=== PATIENT | male | born 1960 | race Caucasian/White ===

== ENCOUNTER 2021-03-03 13:57 | Day surgery (SDC) | payer OTHER ==
[2021-03-03] MEDS ORDERED: LIDOCAINE HCL 2% 100 MG/5 ML IJ ONE (13:58)
[2021-03-03] MEDS ORDERED: DIPRIVAN 200 MG/20 ML IV ONE (15:30)
[2021-03-03] MEDS ORDERED: Lactated Ringers 1,000 ML IV ONE (15:43)
--- NOTE | 2021-03-03 16:55 | XRAY ---
Indication: Bilateral L4-S1 MBB. Intraoperative fluoroscopy provided for 16 seconds. Single digital spot image submitted for interpretation demonstrates posterior needle tips projecting over the expected left and right L4-S1 nerve roots. Correlate with intraoperative findings/report.
--- NOTE | 2021-03-03 17:12 | XRAY ---
16 seconds fluoroscopy time in surgery for bilateral L4-S1 MBB.
== END 2021-03-03 15:55 | disposition home or self-care (01) ==
LOC: SDC-PAIN 13:57
PROVIDERS: ATTEND Psychiatry & Neurology Pain Medicine
DX: M47.816 Spondylosis without myelopathy or radiculopathy, lumbar region (principal); R55 Syncope and collapse; F41.9 Anxiety disorder, unspecified; F32.9 Major depressive disorder, single episode, unspecified; F43.10 Post-traumatic stress disorder, unspecified; F20.9 Schizophrenia, unspecified; Z79.899 Other long term (current) drug therapy
CPT/HCPCS: 64493; 64494; 72020; 77002; J2704

== ENCOUNTER 2021-06-09 11:39 | Day surgery (SDC) | payer OTHER ==
[2021-06-09] MEDS ORDERED: BUPIVACAINE 0.5% VIAL IJ ONE (11:40)
[2021-06-09] MEDS ORDERED: DIPRIVAN 200 MG/20 ML IV ONE (12:45)
[2021-06-09] MEDS ORDERED: Lactated Ringers 1,000 ML IV ONE (13:38)
--- NOTE | 2021-06-09 14:26 | XRAY ---
16 seconds of fluoroscopy was used in surgery for a bilateral L4-S1 MBB.
== END 2021-06-09 13:23 | disposition home or self-care (01) ==
LOC: SDC-PAIN 11:39
PROVIDERS: ATTEND Psychiatry & Neurology Pain Medicine
DX: M47.816 Spondylosis without myelopathy or radiculopathy, lumbar region (principal); Z79.899 Other long term (current) drug therapy
CPT/HCPCS: 64493; 64494; 72020; 77002; J2704

== ENCOUNTER 2021-11-24 23:12 | Emergency (ER) | payer OTHER ==
--- NOTE | 2021-11-25 00:23 | ERPHSYRPT ---
- History of Present Illness Time Seen by Provider: 11/24/21 23:45 Source: patient Exam Limitations: no limitations Patient Subjective Stated Complaint: C/O mid lower back pain. Patient states that he slipped and fell on the ice on 11/15/21 and then his back began hurting on 11/17/21. Patient indicates that he can't get an appointment with his regular MD until 12/02/21 and he can't stand the pain any longer. Triage Nursing Assessment: Patient ambulated back to ED with a slow gait. Patient is alert and oriented and answering questions appropriately. Patient does display s/s of pain with movement in bed. No swelling or bruising noted to lower back upon inspection; skin intact. Physician History: This 61-year-old white male who fell on the ice on 11/15/2021. The patient has chronic back pain issues and has had injections in the back several times in the past. He sees pain specialist Dr. Waller. He does not have an appointment again until 12/02/2021. He states he can't take the pain anymore. Patient has a history of seizures and peripheral neuropathy of his hand. Patient has not had his back x-rayed since the fall on 11/15/2021. He has no urinary or bowel incontinence. He is able to ambulate but it hurts to do so. Timing/Duration: week(s) (2), intermittent, worse Method of Injury: fall (On ice) Quality: sharp, stabbing Back Pain Location: lumbar spine Severity of Pain-Max: moderate Severity of Pain-Current: moderate Modifying Factors: Improves With: movement Associated Symptoms: lower back pain, No urinary incontinence, No loss of bowel control, No problems urinating Previous symptoms: same symptoms as today Allergies/Adverse Reactions: ketorolac [From Toradol] Allergy (Verified 11/24/21 23:19) nortriptyline [From Pamelor] Allergy (Verified 11/24/21 23:19) tramadol [From Ultram] Allergy (Verified 11/24/21 23:19) Home Medications: Citalopram Hydrobromide [Celexa] 1 tab PO DAILY 11/24/21 [History] Gabapentin 100 mg [Neurontin 100 MG] 1 tab PO HS 11/24/21 [History] Oxcarbazepine [Oxtellar Xr] 1 tab PO HS 11/24/21 [History] Hx Tetanus, Diphtheria Vaccination/Date Given: Yes Hx Influenza Vaccination/Date Given: No Hx Pneumococcal Vaccination/Date Given: No Immunizations Up to Date: Yes Travel Risk - International Travel Have you traveled outside of the country in past 3 weeks: No - Coronavirus Screening Are you exhibiting any of the following symptoms?: No Close contact with a COVID-19 positive Pt in past 14-21 Days: No - Vaccine Status Have you recieved a Covid-19 vaccination: Yes [employer]: [employer] - Vaccination Dates Date of 2cond Vaccination (if applicable): 12/13/2020 - Review of Systems Constitutional: No Symptoms Eyes: No Symptoms Ears, Nose, & Throat: No Symptoms Respiratory: No Symptoms Cardiac: No Symptoms Abdominal/Gastrointestinal: No Symptoms Genitourinary Symptoms: No Symptoms Musculoskeletal: Back Pain, Fall Skin: No Symptoms Neurological: No Symptoms Psychological: No Symptoms Endocrine: No Symptoms Hematologic/Lymphatic: No Symptoms Immunological/Allergic: No Symptoms All Other Systems: Reviewed and Negative - Past Medical History Pertinent Past Medical History: Yes Neurological History: Peripheral Neuropathy, Seizures ENT History: No Pertinent History Cardiac History: No Pertinent History Respiratory History: No Pertinent History Endocrine Medical History: No Pertinent History Musculoskeletal History: Arthritis GI Medical History: No Pertinent History History: No Pertinent History Psycho-Social History: Depression Male Reproductive Disorders: No Pertinent History Other Medical History: BOTH KNEE SCOPES IN PAST - Past Surgical History Past Surgical History: Yes Neuro Surgical History: No Pertinent History Cardiac: No Pertinent History Respiratory: No Pertinent History Gastrointestinal: No Pertinent History Genitourinary: No Pertinent History Musculoskeletal: Other Male Surgical History: No Pertinent History Other Surgical History: Bilateral Knees, nose, right hand, right elbow - Social History Smoking Status: Current every day smoker How long have you smoked: 50 years Exposure to second hand smoke: No Drug Use: marijuana Patient Lives Alone: No - Nursing Vital Signs Nursing Vital Signs: Initial Vital Signs Temperature 98.3 F 11/24/21 23:21 Pulse Rate 64 11/24/21 23:21 Respiratory Rate 18 11/24/21 23:21 Blood Pressure 194/85 11/24/21 23:21 O2 Sat by Pulse Oximetry 98 11/24/21 23:21 Pain Scale Pain Intensity [Mid lower back 5 ] Pain Intensity 5 - Physical Exam General Appearance: mild distress, alert, anxiety Eye Exam: PERRL/EOMI, eyes nml inspection Ears, Nose, Throat Exam: normal ENT inspection, moist mucous membranes Neck Exam: normal inspection, non-tender, supple, full range of motion Respiratory Exam: airway intact, No chest tenderness, No respiratory distress Gastrointestinal Exam: No tenderness Rectal Exam: not done Back Exam: normal inspection, normal range of motion, No CVA tenderness, No vertebral tenderness Extremity Exam: normal inspection, normal range of motion, pelvis stable Neurologic Exam: alert, oriented x 3, cooperative, 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, normal mood/affect, nml cerebellar function, nml station & gait, sensation nml Skin Exam: normal color, warm, dry Lymphatic Exam: No adenopathy SpO2 Interpretation: normal SpO2: 95 O2 Delivery: Room Air - Course Nursing assessment & vital signs reviewed: Yes Ordered Tests: Active Orders 24 hr Category Date Time Status LUMBAR LIMITED (2 OR 3 VIEWS) Stat Exams 11/24/21 23:42 Taken - Progress Progress: improved Counseled pt/family regarding: diagnosis, need for follow-up - Departure Departure Disposition: Home Clinical Impression: Fall, Acute exacerbation of chronic low back pain Condition: Stable Critical Care Time: No Referrals: RAD PADRON MD [Primary Care Provider] - Follow up/PCP as directed Additional Instructions: Take your medication as prescribed. Call your pain specialist later this morning to see if you can move your appointment up to an earlier date Prescriptions: Prednisone 10 mg [Deltasone 10 mg] 10 mg PO TID #12 tablet Orphenadrine Citrate 100 mg [Norflex 100 MG Tablet] 100 mg PO BID #10 tab
[2021-11-25] MEDS ORDERED: solu-MEDROL 125 MG, Sterile H2O 10 ml 2 ML IM ONE ×2 (00:39)
[2021-11-25] MEDS ORDERED: Hydromorphone 1 mg/ml Injection IM ONE (00:39)
[2021-11-25] MEDS ORDERED: ZOFRAN ODT 4 MG PO ONE (00:40)
[2021-11-25] MEDS ORDERED: Norflex 60 MG/2 ML IM ONE (00:41)
[2021-11-25] MEDS ORDERED: Norflex 60 MG/2 ML ONE (00:44)
[2021-11-25] MEDS ORDERED: ZOFRAN ODT 4 MG ONE (00:44)
[2021-11-25] MEDS ORDERED: Hydromorphone 1 mg/ml Injection ONE (00:44)
[2021-11-25] MEDS ORDERED: solu-MEDROL ONE (00:45)
[2021-11-25 01:09] VITALS: BP 184/91; PULSE 67; O2SAT 96
--- NOTE | 2021-11-25 09:05 | XRAY ---
Indication: Pain following fall one week ago. Comparison: None 3 view lumbar spine demonstrates 5 lumbar segments with mild osteopenia, mild levoscoliosis centered at L4, minimal/mild multilevel thoracolumbar degenerative spondylosis, and mild scattered vascular calcifications. No other bony, articular, or soft tissue abnormalities.
== END 2021-11-25 01:22 | disposition home or self-care (01) ==
LOC: ED 23:12
DX: M54.50 Low back pain, unspecified (principal); G89.29 Other chronic pain; W00.0XXA Fall on same level due to ice and snow, initial encounter; G40.802 Other epilepsy, not intractable, without status epilepticus; G62.9 Polyneuropathy, unspecified; Z72.0 Tobacco use; Z79.899 Other long term (current) drug therapy; Z79.52 Long term (current) use of systemic steroids
CPT/HCPCS: 72100; 96372; 99284; J1170; J2360; J2930; Q0162